=== PATIENT | female | born 1975 | race Caucasian/White ===

== ENCOUNTER 2018-05-28 04:56 | Day surgery (SDC) | payer OTHER ==
[2018-05-23 16:10] VITALS: BMI 33.6
--- NOTE | 2018-05-25 10:23 | HP ---
[facility] - Chief Complaint Chief Complaint: This patient comes for the removal of an endometrial polyp. History of Present Illness: The patient recently had a pelvic sonogram which shows an endometrial polyp. History Source: Patient Limitations to Obtaining History: No Limitations - Past Medical History Allergies/Adverse Reactions: Allergies Allergy/AdvReac Type Severity Reaction Status Date / Time No Known Allergies Allergy Verified 05/23/18 16:18 CHANGE LEAD: No: Alzheimer's, CVA, Dementia, Migraine, Multiple Sclerosis, Peripheral Neuropathy, Parkinson's, Seizure, Syncope, TIA, Vertigo, Other Cardiovascular: No: AFIB, Aneurysm, Aortic Insufficiency, Aortic Stenosis, CAD, CHF, Deep Vein Thrombosis, HTN, Hyperlipdemia, VT, Mitral Insufficiency, Mitral Stenosis, Murmur, Pulmonary Hypertension, Other Pulmonary: No: Asthma, Bronchitis, Cancer, COPD, O2 Dependent, Pneumonia, Previously Intubated, Pulmonary Embolus, Pulmonary Fibrosis, Sleep Apnea, Other Gastrointestinal: No: Ascites, Cancer, Constipation, Crohn's Disease, Diverticulitis, Diverticulosis, Esophageal Varices, Gastritis, GERD, GI Bleed, Hemorrhoids, Hiatal Hernia, Inflamatory Bowel Disease, Irritable Bowel Disease, Pancreatitis, Peptic Ulcer Disease, Ulcerative Colitis, Other Hepatobiliary: No: Cirrhosis, Cholelithiasis, Cholecystitis, Choledocholithiasis , Hepatitis A, Hepatitis B, Hepatitis C, Other Renal/: No: Renal Failure, Renal Inusuff, BPH, Cancer, Hematuria, Hemodialysis , Neurogenic Bladder, Renal Calculi, UTI, Other Reproductive: No: Ectopic , Endometriosis, Fibroids, PID, Polycystic Ovary Syndrome, Postmenopausal, Other ...LMP: 04/27/18 ...: No ...: 3 ...Para: 2 Heme/Onc: No: Anemia, B12 Deficiency, Bleeding Disorder, Cancer, Current Chemotherapy, Current Radiation Therapy, Hemochromatosis, Hypercoaguable State, Myeloproliferative Synd, Sickle Cell Disease, Sickle Cell Trait, Thrombocytopenia, Other Infectious Disease: No: AIDS, C-Diff, Herpes Zoster, HIV, MRSA, STD's, Tuberculosis, VREF, Other Musculoskeletal: No: Bursitis, Chronic low back pain, Hemiparesis, Hemiplegia, Osteoarthritis, Paraplegia, Other Rheumatology: No: Fibromyalgia, Gout, Lupus, Rheumatoid Arthritis, Sarcoidosis, Vasculitis, Other ENT: No: Allergic Rhinitis, Sinusitis, Other Endocrine: No: Wilmore's Disease, Ranjit's Disease, Diabetes Insipidus, Diabetes Mellitus, Hyperparathyroidism, Hyperthyroidism, Hypothyroidism, Osteopenia, SIADH, Other Dermatology: No: Basal Cell, Cellulitis, Eczema, Melanoma, Psoriasis, Squamous Cell, Other - Current Medications Current Medications: Home Medications Medication Instructions Recorded NK [No Known Home Medication] 05/23/18 Satellite Physical Exam - Physical Examination General Appearance: Well Nourished, Well Developed, Alert & Oriented x3 ENT: Clear, No Discharge, No masses Lung: Clear to auscultation Heart: Regular rate & rhythm, Normal S1, Normal S2 Breasts: Soft, Non-Tender, No masses bilaterally Abdomen: Soft, No tenderness, No CVA Extremities: No edema, No tenderness/swelling Pelvic Exam: Within normal limits External Genitalia, Within normal limits Vagina, Within normal limits Cervix, Within normal limits Uterus, Within normal limits [place] Neurological: Intact, Alert, Oriented Satellite Impression/Plan - Impression/Plan Impression: endometrial polyp Operative Procedure: Hysteroscopy with polypectomy and D/C Date to be Performed: 05/28/18
[2018-05-28] MEDS ORDERED: ePHEDrine SULFATE 50 MG/1 ML AMPULE ONE (07:19)
[2018-05-28] MEDS ORDERED: PROPOFOL 20 ML ONE ×4 (07:20)
[2018-05-28] MEDS ORDERED: ROCURONIUM BROMIDE 50 MG/5 ML VIAL ONE (07:20)
[2018-05-28] MEDS ORDERED: MIDAZOLAM HCL 2 MG/2 ML SINGLE DOSE VIAL ONE (07:20)
[2018-05-28] MEDS ORDERED: SUCCINYLCHOLINE CHLORIDE 200 MG/10 ML VIAL ONE (07:20)
[2018-05-28] MEDS ORDERED: DESFLURANE GAS 240 ML BOTTLE IH ONE (08:34)
[2018-05-28 09:55] VITALS: TEMP 97.8
--- NOTE | 2018-05-28 11:29 | HP ---
DATE OF ADMISSION: 05/28/2018 PREOPERATIVE DIAGNOSIS: Endometrial polyp. POSTOPERATIVE DIAGNOSIS: Polyp not noted. OPERATIVE PROCEDURE: Hysteroscopy, polypectomy, dilation and curettage. SURGEON: Dre De MD ANESTHESIA: MAC. ESTIMATED BLOOD LOSS: 10 mL. DESCRIPTION OF PROCEDURE: The patient was brought to the operating room and placed in a supine position, given anesthesia by the head of strategy, placed in the supine position and then placed in lithotomy position. The patient was examined. The uterus was noted to be anteverted. Adnexa negative. The anterior lip of the cervix was grasped with a tenaculum. The uterus was sounded to 7 cm. The cervix was dilated with Peterson dilators. Hysteroscopy was performed. The patient was noted not to have an endometrial polyp. Endometrial tissue noted, and a dilation and curettage was carried out obtaining endometrial tissue. An endocervical curettage was also carried out. The estimated blood loss was approximately 10 mL. The patient tolerated the procedure well. The hysteroscope was removed. The tenaculum was released from the anterior cervix, and hemostasis was excellent. The patient was then transferred to the recovery room in good condition. Szuy [id number]
[2018-05-28] MEDS ORDERED: oxyCODONE HCL 5 MG TABLET PO PRN (12:09)
[2018-05-28] MEDS ORDERED: ONDANSETRON 4 MG/2 ML VIAL IVPUSH PRN (12:09)
[2018-05-28] MEDS ORDERED: LACTATED RINGERS SOLUTION 1,000 ML IV SCH (12:15)
[2018-05-28 13:22] VITALS: BP 114/64; PULSE 70
--- NOTE | 2018-05-29 16:35 | PATH ---
Surgical Pathology Report Patient Name: JACKELINE PORRAS [facility]. Rec. #: [id number] /Age/Gender: 1975 (Age: 42) / F Account: [id number] Location: [facility] Taken: 05/28/2018 Received: 05/28/2018 Reported: 05/29/2018 Physicians: Dre De M.D. Specimen(s) Received A: ENDOCERVICAL CURETTINGS B: ENDOMETRIAL CURETTINGS Clinical History Endometrial polyp Final Diagnosis A. ENDOCERVICAL CURETTINGS, DILATION AND CURETTAGE: BENIGN CERVICAL TISSUE, LOWER UTERINE SEGMENT,AND SUPERFICIAL MYOMETRIUM. B. ENDOMETRIAL CURETTINGS, DILATION AND CURETTAGE: POLYPOID FRAGMENTS OF PROLIFERATIVE ENDOMETRIUM WITH MILD CHRONIC ENDOMETRITIS, SUPERFICIAL MYOMETRIUM, AND ABUNDANT ENDOCERVICAL TISSUE. Electronically Signed Vianney Carrera M.D. Gross Description A. Received in formalin labeled "endocervical curettings," is a 1.6 x 1.1 x 0.3 cm aggregate of kilgore red soft tissue fragments admixed with mucus. The formalin is filtered and the specimen is entirely submitted in one cassette. B. Received in formalin labeled "endometrial curettings," is a 1.7 x 1.3 x 0.3 cm aggregate of kilgore red soft tissue fragments admixed with mucus. The formalin is filtered and the specimen is entirely submitted in one cassette. /05/28/2018 saudi05/28/2018
== END 2018-05-28 13:05 | disposition home or self-care (01) ==
LOC: JASU-SURG 04:56
PROVIDERS: ATTEND Obstetrics & Gynecology
PROC: 0UJD8ZZ Inspection of Uterus and Cervix, Via Natural or Artificial Opening Endoscopic (ICD-10-PCS; 2018-05-28)
PROC: 0UB97ZX Excision of Uterus, Via Natural or Artificial Opening, Diagnostic (ICD-10-PCS; principal; 2018-05-28 08:00)
PROC: 0UDB7ZX Extraction of Endometrium, Via Natural or Artificial Opening, Diagnostic (ICD-10-PCS; 2018-05-28 08:00)
DX: N84.0 Polyp of corpus uteri (principal)
CPT/HCPCS: 36415; 84703; 86850; 86900; 86901; 88305-TC; 94760

== ENCOUNTER 2018-06-16 10:42 | Emergency (ER) | payer OTHER ==
[2018-06-16 10:55] VITALS: BP 98/55; PULSE 93; TEMP 98.9; BMI 33.6
--- NOTE | 2018-06-16 11:45 | PDOC ---
History of Present Illness - General Chief Complaint: Vaginal Sxs Stated Complaint: YEAST INFECTION Time Seen by Provider: 06/16/18 11:09 History Source: Patient Exam Limitations: No Limitations Past History - Travel Traveled outside of the country in the last 30 days: No Close contact w/someone who was outside of country & ill: No - Past Medical History Allergies/Adverse Reactions: Allergies Allergy/AdvReac Type Severity Reaction Status Date / Time No Known Allergies Allergy Verified 06/16/18 10:47 Home Medications: Ambulatory Orders Fluconazole [Diflucan] 150 mg PO ONCE #1 tablet 06/16/18 Anemia: No Asthma: No Cancer: No Cardiac Disorders: No CVA: No COPD: No CHF: No Dementia: No Diabetes: No GI Disorders: No Disorders: No HTN: No Hypercholesterolemia: No Liver Disease: No Seizures: No Thyroid Disease: No - Surgical History Abdominal Surgery: No Appendectomy: No Cardiac Surgery: No Cholecystectomy: No Gastric Stapling: Yes (sleeve 2015) Lung Surgery: No Neurologic Surgery: No Orthopedic Surgery: No - Suicide/Smoking/Psychosocial Hx Smoking History: Never smoked Have you smoked in the past 12 months: No Hx Alcohol Use: Yes (rarely) Drug/Substance Use Hx: No Substance Use Type: None Hx Substance Use Treatment: No Review of Systems - Review of Systems Able to Perform ROS?: Yes Is the patient limited Slovak proficient: Yes Constitutional: Yes: Symptoms Reported, See HPI, Malaise *Physical Exam - Vital Signs Last Vital Signs Temp Pulse Resp BP Pulse Ox 98.9 F 93 H 18 98/55 L 99 06/16/18 10:44 06/16/18 10:44 06/16/18 10:44 06/16/18 10:44 06/16/18 10:44 - Physical Exam General Appearance: Yes: Nourished, Appropriately Dressed HEENT: positive: PHILLIP, Normal ENT Inspection, TMs Normal, Pharynx Normal Neck: positive: Supple. negative: Tender Respiratory/Chest: positive: Lungs Clear Female Pelvic Exam: positive: discharge (thick white discharge, with beefy-red appearance to labia) Gastrointestinal/Abdominal: positive: Soft. negative: Tender Extremity: positive: Normal Capillary Refill Integumentary: positive: Normal Color, Erythema, Pale Neurologic: positive: nursing program manager II-XII NML intact, Fully Oriented, Alert, Normal Mood/ Affect, Normal Response *DC/Admit/Observation/Transfer Diagnosis at time of Disposition: Tequila infection - Discharge Dispostion Disposition: HOME Condition at time of disposition: Stable Decision to Admit order: No - Prescriptions Prescriptions: Fluconazole [Diflucan] 150 mg PO ONCE #1 tablet - Referrals Referrals: Yamil Rankin MD [Primary Care Provider] - - Patient Instructions Printed Discharge Instructions: DI for Vaginal Yeast Infection Additional Instructions: Rest, drink lots of fluids: Teas, water, soups Avoid contact with others until fevers and symptoms resolved Lots of handwashing and good hygiene Continue [id number] medications for symptomatic relief- Monistat, vaginal cell, creams to help soothe itching and chafing Tylenol or Motrin for fever and pain Diflucan, 150 mg tablet 1 dose for treatment. May repeat in one week if symptoms not completely resolved Followup with private physician / [employer] doctor in one week for reevaluation Return to emergency department for worsened symptoms, fevers, dehydration - Post Discharge Activity Forms/Work/School Notes: Back to Work
== END 2018-06-16 12:00 | disposition home or self-care (01) ==
LOC: JER 10:42 → JERFT 10:42
DX: B37.3 Candidiasis of vulva and vagina (principal)
CPT/HCPCS: 99281-25